=== PATIENT | female | born 1980 | race Caucasian/White ===

== ENCOUNTER 2022-02-11 15:51 | Emergency (ER) | payer MEDICAID ==
[~2022-02-11] VITALS: Ht 160 cm; Wt 77.1 kg
[2022-02-11 15:55] VITALS: BP 136/86
--- NOTE | 2022-02-11 16:22 | NUR ---
PATIENT [facility] POLICE DEPT. PATIENT EXAMINED BY DR. PRUITT. PATIENT MEDICALLY CLEARED AND RELEASED IN CUSTODY IN STABLE CONDITION. ORIGINAL PRE-BOOK FORM GIVEN TO OFFICER ISABELLA.
--- NOTE | 2022-02-11 16:22 | NUR ---
Patient discharged with v/s stable. Written and verbal after care instructions given and explained. Patient verbalized understanding. Police with in custody. All questions addressed prior to discharge. Advised to follow up with PMD.
[2022-02-11 16:23] VITALS: BP 136/86
== END 2022-02-11 16:22 ==
LOC: MED 15:51
DX: Z02.89 Encounter for other administrative examinations (principal); Z48.01 Encounter for change or removal of surgical wound dressing; Z98.890 Other specified postprocedural states
CPT/HCPCS: 99283